=== PATIENT | female | born 1985 | race Caucasian/White ===

== ENCOUNTER 2016-12-08 15:55 | Outpatient (CLI) | payer OTHER | END 2016-12-08 16:40 | disposition home or self-care (01) | DX: O48.0 Post-term pregnancy (principal); Z3A.40 40 weeks gestation of pregnancy ==

== ENCOUNTER 2016-12-09 15:51 | Inpatient (IN) | payer OTHER ==
[2016-12-09] MEDS ORDERED: ONDANSETRON 4 MG/2 ML VIAL IVP PRN (17:16)
[2016-12-09] MEDS ORDERED: SODIUM CHLORIDE FLUSH 0.9% 10 ML SYRINGE IVP PRN (17:16)
[2016-12-09] MEDS ORDERED: fentaNYL 100 MCG/2 ML VIAL IVP PRN (17:16)
[2016-12-09] MEDS: LACTATED RINGERS 1,000 ML IV SCH ×3 (18:16→23:57)
[2016-12-09] MEDS ORDERED: SUFENTA/BUPIV 0.4 MCG/0.0625% 150 ML EP ONE (19:17)
[2016-12-09] MEDS ORDERED: SODIUM CHLORIDE FLUSH 0.9% 10 ML SYRINGE IVP SCH (22:00)
[2016-12-09] MEDS ORDERED: OXYTOCIN/LACTATED RINGERS 250 ML IV ONE (23:27)
[2016-12-10] MEDS ORDERED: diphenhydrAMINE INJ 50 MG/ML VIAL IVP SCH (01:00)
[2016-12-10] MEDS ORDERED: LIDOCAINE 1% 50 ML MDV ONE (01:51)
[2016-12-10] MEDS ORDERED: miSOPROStol 200 MCG TABLET ONE (01:51)
[2016-12-10] MEDS ORDERED: MINERAL OIL LIGHT 10 ML MC ONE (01:53)
[2016-12-10] MEDS ORDERED: WITCH HAZEL/GLYCERIN 1 EACH MED..PAD TOP PRN (05:38)
[2016-12-10] MEDS ORDERED: HYDROCORTISONE 1% CREAM 28 GM TUBE PR PRN (05:38)
[2016-12-10] MEDS ORDERED: OXYTOCIN/LACTATED RINGERS 250 ML IV ONE (05:38)
[2016-12-10] MEDS ORDERED: oxyCOD/ACETAMIN 5 MG/325 MG TABLET PO PRN (05:38)
[2016-12-10] MEDS ORDERED: diphenhydrAMINE 25 MG CAPSULE PO PRN (05:38)
[2016-12-10] MEDS ORDERED: LACTATED RINGERS 1,000 ML IV SCH (06:00)
[2016-12-10] MEDS: IBUPROFEN 800 MG TABLET PO SCH ×3 (08:30→20:40)
[2016-12-10] MEDS: HYDROCORTISONE/PRAMOXINE 10 GM PR PRN (08:30)
[2016-12-10] MEDS: DOCUSATE SODIUM 100 MG CAPSULE PO SCH ×2 (08:31→20:40)
[2016-12-11] MEDS: IBUPROFEN 800 MG TABLET PO SCH ×4 (03:14→22:26)
[2016-12-11] MEDS: DOCUSATE SODIUM 100 MG CAPSULE PO SCH ×2 (09:13→21:19)
[2016-12-11] MEDS: ACETAMINOPHEN 325 MG TABLET PO PRN (16:00)
[2016-12-11] MEDS: HYDROCORTISONE/PRAMOXINE 10 GM PR PRN (16:03)
[2016-12-12] MEDS: ACETAMINOPHEN 325 MG TABLET PO PRN ×2 (02:31→09:41)
[2016-12-12] MEDS: IBUPROFEN 800 MG TABLET PO SCH ×2 (06:01→13:09)
[2016-12-12] MEDS: DOCUSATE SODIUM 100 MG CAPSULE PO SCH (09:41)
== END 2016-12-12 13:30 | disposition home or self-care (01) | DRG 775 ==
PROC: 0W8NXZZ Division of Female Perineum, External Approach (ICD-10-PCS; principal; 2016-12-10)
PROC: 10E0XZZ Delivery of Products of Conception, External Approach (ICD-10-PCS; principal; 2016-12-10)
DX: O70.1 Second degree perineal laceration during delivery (principal); Z3A.40 40 weeks gestation of pregnancy; Z37.0 Single live birth; O76 Abnormality in fetal heart rate and rhythm complicating labor and delivery

== ENCOUNTER 2018-07-16 07:32 | Day surgery (SDC) | payer OTHER ==
[~2018-07-16 07:32] MED LIST: ceFAZolin 2 GM/50 ML 2 GM/50 ML BAG IV ONE
--- NOTE | 2018-07-16 07:53 | ANESTHESIA ---
Pre-Anesthesia VS, & Labs - Diagnosis Umbilical hernia - Procedure Umbilical hernia repair Height 5 ft 4 in - NPO >8 hours - Is Patient ?: Waiver signed - Lab Results Lab results reviewed: No Home Medications and Allergies Home Medications: Ambulatory Orders No Known Home Medications 07/15/18 No Known Home Medications 07/15/18 Allergies/Adverse Reactions: Allergies Allergy/AdvReac Type Severity Reaction Status Date / Time No Known Drug Allergies Allergy Verified 07/15/18 12:58 Anes History & Medical History - Anesthetic History Anesthesia Complications: reports: No previous complications Family history of Anesthesia Complications: Denies Family history of Malignant Hyperthermia: Denies - Medical History Cardiovascular: reports: None Pulmonary: reports: None Gastrointestinal: reports: None Urinary: reports: None Neuro: reports: None Musculoskeletal: reports: None Endocrine/Autoimmune: reports: None Blood Disorders: reports: None Skin: reports: None Smoking Status: Former smoker Psychosocial: reports: No issues indicated Exam General: Alert Dental: WNL, TMJ Mouth Opening: Greater than 4 Fingerbreadths Neck Mobility: Normal Mallampati classification: I Respiratory: Lungs clear Cardiovascular: Regular rate Neurological: Normal speech Mental/Cognitive Status: Alert/Oriented X3 Cognitive Status: Within normal limits Plan Anesthesia Type: MAC Consent for Procedure(s) Verified and Reviewed: Yes Code Status: Attempt Resuscitation ASA classification: 1-Healthy patient Is this case an emergency?: No
[2018-07-16] MEDS ORDERED: ONDANSETRON 4 MG/2 ML VIAL ONE (08:04)
[2018-07-16] MEDS ORDERED: BUPIVACAINE 0.5% PF 30 ML VIAL ONE (08:05)
[2018-07-16] MEDS ORDERED: LACTATED RINGERS 1,000 ML IV ONE (08:09)
[2018-07-16] MEDS ORDERED: BUPIVACAINE 0.5% PF 30 ML VIAL SUBQ ONE (08:43)
[2018-07-16] MEDS ORDERED: PROPOFOL 200 MG/20 ML VIAL IVP ONE (09:20)
[2018-07-16] MEDS ORDERED: MIDAZOLAM 2 MG/2 ML VIAL IVP ONE (09:20)
[2018-07-16] MEDS ORDERED: fentaNYL 100 MCG/2 ML VIAL IVP ONE (09:20)
[2018-07-16] MEDS ORDERED: LIDOCAINE-MPF 2% 5 ML VIAL IM ONE (09:20)
--- NOTE | 2018-07-16 09:30 | OPERATIVE REPORT ---
Operative Report - General Procedure Date: 07/16/18 Planned Procedure: Umbilical herniorrhaphy Pre-Op Diagnosis: Umbilical hernia Procedure Performed: Umbilical herniorrhaphy (primary) Post Op Diagnosis: Umbilical hernia - Procedure Note Primary Surgeon: Raudel Rodriguez MD Anesthesia Provider: Addie Joshi CRNA Anesthesia Technique: Local (30 mL of half percent Marcaine), MAC IV Fluids (mL): 500 Estimated Blood Loss (mL): 2 Complications: None. - Other Other Information/Narrative: OPERATIVE DESCRIPTION/REPORT: After verbal and written informed consent was obtained detailing the risks of infection, bleeding requiring transfusion with its risks, nerve injury, and , and after I met with the patient confirming the surgery and the site of the surgery, the patient was brought to the operative suite and placed supine on the operating table. Great care was taken to avoid pressure points to prevent pressure necrosis or nerve injury. Monitoring devices were applied along with TEDs and pneumatic compressive stockings (to prevent DVT). The patient received preoperative antibiotics for surgical prophylaxis. Addie Joshi CRNA sedated and anethetized the patient for the entire procedure. The patient was prepped and draped in the usual sterile manner. With the patient draped my initials were clearly visible. A "time in" then confirmed that the paitient was identified with 3 identifiers (name, date and medical record number), the history and physical was in the chart, the signed consent confirming the procedure was in the chart, the patient was in the correct position, the aforementioned prophylactic measures were in place or given, we had the correct personnel and equipment to complete the procedure and that anesthesia, surgery and nursing were given an opportunity to express any concerns. With the agreement of everyone in the room, we proceeded with the operation. After injecting the area with 1/2% marcaine, a standard curvilinear umbilical incision was made and dissection was carried down to the hernia sac using a combination of Metzenbaum scissors and Bovie electrocautery. The sac was cleared of overlying adherent tissue, and the fascial defect was delineated. The fascia was cleared of any adherent tissue for a distance 1.5 cm from the defect. The sac was resected using Bovie electrocautery. The defect measured 1/4 inch in diameter -much too small to use mesh. The defect was closed primarily using 1 0-Prolene suture In a [id number] fashion. The patient was then given an ``innie by suturing the back of the umbilicus to the fascia using a 2-0 Vicryl. Meticulous hemostasis was obtained using Bovie electrocautery. The skin incision was approximated with a running 4-0 Monocryl. At this point a time out was performed that confirmed that all the counts were correct, the procedure that was performed, the blood loss, the urine output, the IV fluids administered, and the patients condition. Having tolerated the procedure well, the patient was subsequently taken to short stay in good and stable condition. [employer] disclaimer: This document was created in part using voice recognition technology. Because of the inherent limitations of the system ([employer]'s [employer] user manual states that the licensee understands that speech recognition is a statistical process and that recognition errors are inherent in the process), occasional yolis e sounding word substitutions and grammatical errors do occur and persist despite proofreading. Please read this document for context.
[2018-07-16] MEDS ORDERED: HYDROmorphone 0.5 MG/0.5 ML SYRINGE IVP PRN (09:34)
[2018-07-16] MEDS ORDERED: ONDANSETRON 4 MG/2 ML VIAL IVP PRN (09:34)
[2018-07-16] MEDS ORDERED: HYDROcod/ACETAM 5/325 MG TABLET PO PRN (09:34)
[2018-07-16 10:22] VITALS: BP 107/73
== END 2018-07-16 07:33 | disposition home or self-care (01) ==
LOC: SDS 07:32
PROVIDERS: ATTEND Surgery
PROC: 0WQF0ZZ Repair Abdominal Wall, Open Approach (ICD-10-PCS; principal; 2018-07-16 08:30)
DX: K42.9 Umbilical hernia without obstruction or gangrene (principal); Z87.891 Personal history of nicotine dependence
CPT/HCPCS: 49585; A9270; J0690; J7120